=== PATIENT | male | born 1965 | race Caucasian/White ===

== ENCOUNTER → 2018-05-10 | Outpatient (CLI) | payer OTHER ==
[~2018-05-10] MED LIST: ASPIR 8181 MG PO; BUTALB-APAP-CA1 EACH; CARDURA4 MG PO; FLEXERIL PO; LIPITOR 20 MG T20 M1 PO; MEN'S MULTI-VI1 EACH PO; METOPROLOL TART25 MG PO; TOPROL XL25 MG PO; VITAMIN D2000 UNIT PO; ZANTAC 150MG T150 MG PO
--- NOTE | 2018-05-13 17:45 | 24HR ---
[place] [address] HOLTER MONITOR REPORT Name: REJI BOWLES Room: [facility]#: [id number] Admission: 05/10/18 Attend Phys: Trino Denny, Discharge: Date of : 63 Date of Service: 05/13/18 1052 Report #: [id number] THIS REPORT FOR: //name// [facility] Test Date: 2018-05-13 Test Time: 10:52:24 Pat Name: REJI BOWLES Department: Room: Gender: Molding Process Technician: : 1965 Requested By: Trino Denny Order Number: [id number] Eduardo LYON: Salomón Goldberg Interpretive Statements 1. sinus rhythm with sinus bradycardia and tachycardia 2. occasional pvc and a 3 beat run of tachycardia 3. occasional pac and a short run of SVT 4. symptoms did not correlate with an arrhythmia Electronically Signed On 05-13-2018 17:45:22 WIRE STITCHER OPERATOR by Salomón Goldberg [email or web address] <ELECTRONICALLY SIGNED> By: Salomón Goldberg MD, [facility] 05/13/18 1745 1052 51 Salomón Goldberg MD, FACC /EPI
== END ==
LOC: M.CRD 04-12 11:00
DX: R00.2 Palpitations (principal)

== ENCOUNTER 2020-06-12 08:05 | Emergency (ER) | payer OTHER ==
[~2020-06-12] VITALS: Ht 198.1 cm; Wt 111.1 kg
[2020-06-12 08:55] LABS: ABSOLUTE LYMPHOCYTES 0.8 thou/uL (0.8-5.3); ABSOLUTE MONOCYTES 0.3 thou/uL (0.0-1.2); ABSOLUTE NEUTROPHILS 1.5 thou/uL (1.6-8.1); BASOPHILS 0.7 %; HEMATOCRIT 40.4 % (42.0-52.0); HEMOGLOBIN 13.8 gm/dL (14.0-18.0); LYMPHOCYTES 28.8 %; MCH 29.6 pg (26.0-34.0); MCHC 34.1 g/dL (28.0-37.0); MCV 86.8 fL (80.0-100.0); MONOCYTES 10.8 %; NUCLEATED RBCS 0 /100WBC; PLATELET COUNT* 146 thou/uL (150-400); POLYS 58.7 %; RBC 4.65 mil/uL (4.50-6.00); RDW-CV 13.5 % (10.5-14.5); WBC 2.6 thou/uL (4.0-11.0)
[2020-06-12 09:05] LABS: CALCIUM 8.8 mg/dL (8.5-10.1); CREATININE 0.9 mg/dL (0.6-1.3); POTASSIUM 4.1 mmol/L (3.5-5.1)
[2020-06-12 09:22] LABS: ALBUMIN 3.5 g/dL (3.4-5.0); TOTAL BILIRUBIN 0.5 mg/dL (<0.1-1.0); TOTAL PROTEIN 7.5 g/dL (6.4-8.2)
[2020-06-12] MEDS ORDERED: TYLENOL325 M1 PO (09:50)
[2020-06-12] MEDS ORDERED: VANACOF DM LIQ240 ML PO (09:50)
[2020-06-12] MEDS ORDERED: NAPROSYN500 MG PO (09:50)
[2020-06-12] MEDS ORDERED: AZITHROMYCIN500 MG PO (09:50)
[2020-06-12 10:09] VITALS: BP 121/70
--- NOTE | 2020-06-13 12:46 | EKG ---
[place] [address] ELECTROCARDIOGRAM REPORT Name: REJI BOWLES Room: [facility]#: [id number] Admission: 06/12/20 Attend Phys: Discharge: 06/12/20 Date of : 63 Date of Service: 06/12/20 0856 Report #: [id number] THIS REPORT FOR: //name// [facility] ED Test Date: 2020-06-12 Test Time: 08:56:49 Pat Name: REJI BOWLES Department: Room: Gender: Digital Campaign Manager: TDS : 1965 Requested By: Henry Aguilar Order Number: [id number] MD: Golden Rene Measurements Intervals [place] Rate: 69 P: 18 MS: 213 QRS: -37 QRSD: 102 T: 51 QT: 412 QTc: 442 Interpretive Statements Sinus rhythm Prolonged MS interval Left axis deviation RSR' in V1 or V2, right VCD or RVH Compared to ECG 04/06/2008 07:56:27 First degree AV block now present Left-axis deviation now present Right ventricular hypertrophy now present RSR' in V1 or V2 now present Sinus bradycardia no longer present Early repolarization no longer present Electronically Signed On 06-13-2020 12:46:01 PRELOAD SUPERVISOR by Golden Rene [email or web address] <ELECTRONICALLY SIGNED> By: Alex Rene MD, [facility] 06/13/20 1246 5 Alex Rene MD, [facility] /EPI
== END 2020-06-12 10:10 | disposition home or self-care (01) ==
LOC: M.ERS 08:05
PROVIDERS: Emergency Medicine
DX: U07.1 COVID-19 (principal); J18.9 Pneumonia, unspecified organism; Z79.82 Long term (current) use of aspirin; Z79.899 Other long term (current) drug therapy